=== PATIENT | male | born 2000 | race Caucasian/White ===

== ENCOUNTER 2021-04-16 16:22 | Emergency (ER) | payer OTHER, SELFPAY ==
--- NOTE | ~2021-04-16 | XR_ITS ---
EXAMINATION: XR finger 1st RT min 2V EXAM DATE: 04/16/2021 16:46 INDICATION: Smashed rt thumb , pain mid to distal rt thumb. Initial encounter. TECHNIQUE: Right 1st finger frontal, lateral and oblique projections obtained and reviewed. There is no prior study for comparison. FINDINGS: There is soft tissue laceration identified along the nailbed. There is acute posttraumatic tuft fracture with 102 mm of distraction. This potentially could be an open fracture, clinical corre lation. There is overlying soft tissue swelling. No radiopaque foreign bodies identified. IMPRESSION: Right 1st tuft fracture, possibly open. Reviewed, dictated and finalized at location A.
[2021-04-16 16:30] VITALS: BP 176/74; PULSE 93; RESP 16; TEMP 37.7; O2SAT 100
--- NOTE | 2021-04-16 17:16 | ED.WOUNDLAC ---
HPI - Wound/Laceration General Chief Complaint: Wound/Laceration Stated Complaint: Right thumb crushed at work Time Seen by Provider: 04/16/21 16:52 Source: patient, RN notes reviewed and old records reviewed Mode of arrival: ambulatory Limitations: no limitations History of Present Illness HPI narrative: 20-year-old male who presents to [facility] with crushing injury to his right thumb which happened today at around 1130 today when his right thumb got caught in between wheel the [place] and truck bed.Pressure of wheelbarrow pulled nail out of cuticle bed on his thumb with distal part of nail still attached.Patient has pain to the distal region of his thumb. He cleansed his thumb with peroxide applied triple antibiotic ointment and gauze prior to arrival to clinic. Patient states pain 5/10 and throbbing. He states that his tetanus is not up to date. Related Data Allergies Allergy/AdvReac Type Severity Reaction Status Date / Time No Known Allergies Allergy Unverified 07/24/18 17:20 Review of Systems Review of Systems: Narrative: CONSTITUTIONAL: Denies fever, chills, or sweats. EYES: Denies visual changes, redness, or discharge. ENT: Denies rhinorrhea, congestion, sore throat, or otalgia. CARDIOVASCULAR: Denies chest pain, palpitations, or edema. RESPIRATORY: Denies cough or dyspnea. GASTROINTESTINAL: Denies abdominal pain, nausea, vomiting, or diarrhea. GENITOURINARY: Denies dysuria or hematuria. SKIN: Denies rash or itching. MUSCULOSKELETAL: Denies back pain, joint pain, or myalgia, positive for right thumb pain with injury to nail bed of his right thumb NEUROLOGIC: Denies headache, numbness, or weakness. PSYCHIATRIC: Positive history of anxiety or depression. All systems reviewed & are unremarkable except as noted in HPI and below PMFSH Past Medical History Medical History (Updated 04/16/21 @ 18:25 by Kathie Molina NP) Anxiety and depression Foot fracture, right Fracture of left femur Fracture of left wrist Fracture of ribs, multiple, closed Pneumonia Surgical History Surgical History (Updated 04/16/21 @ 18:25 by Kathie Molina NP) No history of previous surgery Family History Family History (Updated 04/16/21 @ 18:17 by Kathie Molina NP) Grandparent Breast cancer Lung cancer Mother Emphysema lung Social History Social History (Updated 04/16/21 @ 18:17 by Kathie Molina NP) Smoking packs per day: 1 Smoking cigarettes per day: 20.0 Smoking status: Current every day smoker Alcohol intake: current Alcohol use details: rare social Substance use: never Living arrangements: with family Gender identity (if verbalized by the patient): Male Comments At time of signature, agree with nursing past medical, surgical, social and family history. There is no relevant family history pertinent to the presenting complaint Exam Narrative: Exam Narrative: GENERAL: Well-appearing, well-nourished, and in no acute distress. HEAD: Normocephalic, atraumatic. EYES: PERRLA and EOMI. ENT: Nares clear, no rhinorrhea or epistaxis. Mucous membranes moist. NECK: Supple. no lymphadenopathy CHEST: Clear to auscultation. No respiratory distress.SAO2 100% on room air. HEART: Regular rate and rhythm. No murmur heard. Normal peripheral pulses. ABDOMEN: Soft, nontender, nondistended, normal active bowel sounds. EXTREMITIES: Normal range of motion. No edema. Injury to distal right thumb where thumb was caught between truck bed and wheelbarrow with injury of distal tip of right thumb and to cuticle nail bed with nail pulled out but attached distally SKIN: Warm, dry, no rash. NEURO: No focal deficits. Alert and oriented x3. Course Vital Signs Vital signs: Vital Signs Temperature 37.7 C H 04/16/21 16:30 Pulse Rate 93 04/16/21 16:30 Respiratory Rate 16 04/16/21 16:30 Blood Pressure 176/74 H 04/16/21 16:30 Pulse Oximetry 100 04/16/21 16:30 Temperature 37.7 C H 04/16/21 16:30 Pulse R
[2021-04-16] MEDS: TETANUS,DIPHTHERIA,AC PERTUSSIS ADULT (0.5 ML) BOOSTRIX IM (17:34)
[2021-04-16] MEDS: cefTRIAXone 1 GM VIAL IM (17:37)
[2021-04-16] MEDS: LIDOCAINE HCL 1% LOCAL INJ 20 ML VIAL 2.1 ML IM (17:38)
== END 2021-04-16 18:09 | disposition home or self-care (01) ==
PROVIDERS: Emergency Provider Registered Nurse
DX: S62.521B Displaced fracture of distal phalanx of right thumb, initial encounter for open fracture (principal); S69.91XA Unspecified injury of right wrist, hand and finger(s), initial encounter; X58.XXXA Exposure to other specified factors, initial encounter; Z23 Encounter for immunization; F17.210 Nicotine dependence, cigarettes, uncomplicated
CPT/HCPCS: 73140; 90471; 90715; 96372; 99213; G0463; J0696